=== PATIENT | female | born 1980 | race Caucasian/White ===

== ENCOUNTER → 2021-05-06 03:14 | Outpatient (CLI) | payer OTHER, SELFPAY ==
[2021-05-06 19:06] LABS: SARS-CoV-2 RNA PCR Positive
== END ==
PROVIDERS: Visit Provider Obstetrics & Gynecology
DX: U07.1 COVID-19 (principal)
CPT/HCPCS: C9803; U0003; U0005

== ENCOUNTER 2021-05-06 08:31 | Outpatient (CLI) | payer OTHER, SELFPAY ==
[2021-05-06 09:16] LABS: Basophils Percent Auto 0.5 % (0.2-1.2); Eosinophils Absolute Auto 0.2 K/mm3 (0-0.3); Eosinophils Percent Auto 2.8 % (0-4.4); Hematocrit 42.8 % (37.0-47.0); Hemoglobin 14.6 g/dL (12.0-15.0); Immature Granulocyte Absolute 0.04 K/mm3 (0.00-0.031); Immature Granulocyte Percent A 0.5 % (0-0.5); Lymphocytes Absolute Auto 1.59 K/mm3 (0.9-3.2); Mean Corpuscular HGB Conc 34.1 g/dl (32-36); Mean Corpuscular Hemoglobin 31.5 pg (26-34); Mean Corpuscular Volume 92.2 fl (80-100); Mean Platelet Volume 10.1 fl (7.4-10.4); Monocytes Absolute Auto 0.5 K/mm3 (0.1-0.6); Monocytes Percent Auto 6.7 % (2.6-8.5); Neutrophils Absolute Auto 5.2 K/mm3 (1.3-6.7); Neutrophils Percent Auto 68.5 % (45.5-73.1); Platelet Count Result 227 k/mm3 (150-375); Red Blood Count 4.64 M/mm3 (4.2-5.4); Red Cell Distribution Width 11.7 % (11.5-14.5); White Blood Count 7.6 K/mm3 (4.5-10.0)
== END 2021-05-06 08:32 | disposition home or self-care (01) ==
LOC: ANHSURGERY 08:36
PROVIDERS: Visit Provider Obstetrics & Gynecology
DX: D21.9 Benign neoplasm of connective and other soft tissue, unspecified (principal); Z01.818 Encounter for other preprocedural examination
CPT/HCPCS: 36415; 85025; 86850; 86900; 86901; C9803; U0003; U0005

== ENCOUNTER 2021-05-30 00:17 | Day surgery (SDC) | payer OTHER, SELFPAY ==
[2021-05-02 13:43] VITALS: BMI 20.5
--- NOTE | 2021-05-02 13:55 | PC.NURSE ---
Addendum entered by Gifty Bazzi RN 05/22/21 10:27: PT TO ARRIVE AT 0600 ON 05/30/21 FOR SURGERY AT 0730. ONE VISITOR IS ALLOWED AT THIS TIME. NO REPEAT COVID TEST NEEDED. Original Note: Report to the Outpatient Waiting Room, entrance under the green pavilion located off [facility], at time 6:00 on date 05/09/21. OR Time: 7:30. - You will be asked a series of questions to screen for COVID 19 for your protection. - A mask is required within the hospital. - No visitors are allowed at this time. Preoperative COVID Testing Requirements: COVID TEST 05/06 AT 8:30 No COVID Test needed if: (proof is required; if not received patient will have Rapid Test prior to entry) - Patient has received COVID Vaccine at least 14 days prior to procedure date or - Patient has positive COVID test result within last 90 days of surgery date. COVID Test needed if above criteria is not met If not COVID vaccinated a COVID test must be conducted within 72 hours of surgery and patient is asked to isolate self from time of testing until procedure. You will go to the [email or web address] for your COVID testing. The [email or web address] site is located at the corner of [address] [facility]. You will only be called if COVID results are positive and your surgeon may reschedule your elective surgery date. Patients may have clear liquids (water, carbonated beverages, clear teas, apple juice) until 3 hours prior to surgery (4:30) with a maximum of 20 ounces. - No food from midnight until time of surgery Take the following medications with a SIP of water the morning of surgery: XANAX AND PAIN PILL (IF NEEDED) Medications to discontinue per physician: VITAMINS/SUPPLEMENTS Date to take last dose: 05/05/21 Please no make-up, nail english, hairspray, perfume, deodorant, or body powder the day of surgery. No jewelry (including any body piercings) or valuables the day of surgery, leave them at home. Please take a shower or bath the night before, or the morning of, surgery with an antibacterial soap. Wear comfortable, loose fitting clothing. - Jewelry must be removed prior to entering the operating room. Rings and piercings that are not removed may be cut off. - The hospital will not accept responsibility for valuables. - Please leave all valuables, including medications, at home the day of surgery. If you are going home after surgery, a licensed class c driver must drive you home. - NO public transportation without another adult. - We recommend that an adult stay with you for 24 hours following discharge. - We also recommend that you do not drive, make important decision, drink alcoholic beverages, or take any drugs that were not prescribed by your health care provider for at least 24 hours after your discharge time. Follow any additional instructions given to you from your surgeon. Telephone instructions given to AMY MIKE and asked if any additional questions and then verbalized understanding. Patient advised to call surgeon office or pre surgery nurse liaison [phone] if any additional questions.
--- NOTE | 2021-05-22 10:27 | PC.NURSE ---
Pt states no changes in medications or health history since initial interview. Covid + results added to history. New instructions reviewed with pt. Pt denies further questions at this time.
--- NOTE | 2021-05-28 07:52 | P.HP_ITS ---
H&P: HPI History of Present Illness Date/Time: 05/28/21 07:52 41-year-old para admitted for robotic total vaginal hysterectomy bilateral salpingectomy secondary to dyspareunia/dysmenorrhea/fibroids. Patient was scheduled a month ago and had COVID this was rescheduled. She has known fibroids and severe pain discomfort and failed an ablation. Risks and benefits reviewed including but not exclusive of , aspiration pneumonia, bleeding, transfusion perforation injury to bowel, bladder, ureters, or other internal organs with need for laparotomy. She received the [employer] handout entitled hysterectomy as well as the de Bernard handout. She had all questions answered and asked to proceed Chief Complaint: Pelvic pain and dyspareunia with enlarged uterus Review of Systems Review of Systems: All systems reviewed & are unremarkable except as noted in HPI and below [facility] Social History Social History Smoking packs per day: 1 Smoking cigarettes per day: 20.0 Years smoked: 6 Smoking pack-years: 6.00 Smoking status: Former smoker Tobacco type: cigarettes Smoking end date: 04/05/04 Alcohol intake: never Substance use: current Substance use type: marijuana Living arrangements: with family Spiritual care concerns: No Meds Home Medications and Allergies Home Medications Medication Instructions Recorded Confirmed Type acetaminophen 300 mg-codeine 60 mg 1 tablet PO TID #90 tablet 11/06/20 05/22/21 Rx tablet sumatriptan succinate 100 mg tablet See Rx Instructions .ROUTE 03/25/21 05/22/21 Rx .COMPLEX #9 tablet alprazolam [Xanax] 0.5 mg PO DAILY 05/02/21 05/22/21 History ascorbic acid-vitamin E-biotin 1 tablet PO DAILY 05/02/21 05/22/21 History [Hair, Skin, Nails with Biotin] Allergies Allergy/AdvReac Type Severity Reaction Status Date / Time METOCLOPRAMIDE HCL Allergy Mild Hyperactive Uncoded 05/22/21 10:26 Exam Const: General: no acute distress Eyes: General: appearance normal, both eyes and all related structures Neck: Neck: supple and no JVD Thyroid: thyroid normal Resp: Effort & Inspection: normal respiratory effort Auscultation: clear to auscultation bilaterally Cardio: Rate: regular rate Rhythm: regular rhythm GI: Inspection: non-distended GI Palp: Yes Soft to palpation, No Tenderness to palpation present (GI) and No Guarding due to palpation present (GI) Auscultation: normal bowel sounds : External Female Exam: normal external appearance Speculum Exam - Vagina: normal appearance of the vagina Speculum Exam - Cervix: normal appearance of the cervix Bimanual exam- vagina & uterus: Cervical tenderness present, enlarged and nodular Skin: General skin exam: no rashes or lesions noted Extrem: General: normal to inspection and no edema Psych: Mental Status: mental status grossly normal Affect: normal affect Assessment and Plan Additional Plan Impression: Enlarged uterus pain and dyspareunia with suspected fibroids Plan: Robotic total vaginal hysterectomy/bilateral salpingectomies
[2021-05-30] VITALS (15 sets, daily range): BP systolic 104–117; BP diastolic 62–82; PULSE 58–108; RESP 12–18; TEMP 36.6–37.3; O2SAT 92–100
--- NOTE | 2021-05-30 06:39 | WPDHPUPDATE1 ---
History and Physical Update Update Date/Time: 05/30/21 06:39 History and Physical has been reviewed, including an updated exam of the patient. There are NO changes in the patient's condition. Risks, benefits, and alternatives have been discussed and questions answered. Patient agrees to proceed with procedure.
--- NOTE | 2021-05-30 06:41 | P.PNAN_ITS ---
Anes - Initial Pre Proc Eval Procedure: Operation Date: 05/30/21 07:30 Proposed Procedures p Robotic Assisted Total Vaginal Hysterectomy with Bilateral Salpingectomy - Adolph Hinson MD Date/Time: 05/30/21 06:41 Surgeon: Adolph Hinson MD Pre Op Diagnosis: pain, dyspareunia, dysmenorrhea, fibroids Patient Data Age: 41 Gender: F Height: 1.63 m Weight: 53.5 kg Allergies Allergy/AdvReac Type Severity Reaction Status Date / Time metoclopramide [From Reglan] AdvReac Intermediate Hyperactive Verified 05/30/21 06:17 Home Medications Medication Instructions Recorded Confirmed Type acetaminophen 300 mg-codeine 60 mg 1 tablet PO TID #90 tablet 11/06/20 05/22/21 Rx tablet sumatriptan succinate 100 mg tablet See Rx Instructions .ROUTE 03/25/21 05/22/21 Rx .COMPLEX #9 tablet alprazolam [Xanax] 0.5 mg PO DAILY 05/02/21 05/22/21 History ascorbic acid-vitamin E-biotin 1 tablet PO DAILY 05/02/21 05/22/21 History [Hair, Skin, Nails with Biotin] hydrocodone-acetaminophen 1 tablet PO Q4H PRN #30 tablet 05/30/21 Rx Patient hx anesthesia problems: none Family hx anesthesia problems: none Results Review: All pre-operative results and documents have been reviewed as part of the pre-operative evaluation. COUNTS INCLUDE 234 BEDS AT THE [facility] Past Medical History Medical History (Updated 05/30/21 @ 06:42 by Adolph Menchaca MD) Abnormal uterine bleeding Anxiety Surgical History Surgical History (Updated 05/30/21 @ 06:42 by Adolph Menchaca MD) H/O laparoscopy History of section History of endometrial ablation Social History Social History Smoking packs per day: 1 Smoking cigarettes per day: 20.0 Years smoked: 6 Smoking pack-years: 6.00 Smoking status: Former smoker Tobacco type: cigarettes Smoking end date: 04/05/04 Alcohol intake: never Substance use: current Substance use type: marijuana Living arrangements: with family Spiritual care concerns: No Anes - Eval Final PreProcedure Day of Procedure 05/30/21 06:41 Patient weight: normal Heart: regular rate and rhythm Lungs: clear to auscultation Airway: Mallampati scale class II Neurological: alert and oriented Last oral intake: >/= 8 hours ASA classification: II Emergent: no Anesthetic plan: proceed Anesthesia type and monitoring: general ETT and standard monitoring Results Review: All pre-operative results and documents have been reviewed as part of the pre-operative evaluation. Informed Consent: The patient's anesthetic plan and its attendant risks and benefits were discussed with the patient/family/POA. Questions were solicited and answers provided to the satisfaction of the patient/family/POA.
[2021-05-30] MEDS: LACTATED RINGERS 1,000 ML 30 ML IV CONT ×2 (06:45→08:55)
[2021-05-30] MEDS: KETOROLAC 15 MG/ML VIAL (*BKC) IV PUSH (06:46)
[2021-05-30] MEDS: ceFAZolin 2 GM/D5W 50 ML 2 GM/50 ML BAG IVPB (07:26)
--- NOTE | 2021-05-30 08:44 | W.PM.PROC2 ---
Procedure Note - Detailed Date of Procedure 05/30/21 Pre-op Diagnosis pain, dyspareunia, dysmenorrhea, fibroids Post-op Diagnosis same Procedure Performed Robotic total vaginal hysterectomy with bilateral salpingectomies/destruction of endometriosis Surgeon Adolph Hinson MD Anesthesia general Indications 41-year-old female with pelvic pain dyspareunia dysmenorrhea and suspected fibroids. Findings Fibroid uterus. Adhesions from the omentum to the anterior abdominal wall. Endometriosis along the left uterosacral ligament. Normal-appearing ovaries. Tubes status post tubal ligation Description of Procedure The patient was prepped draped in normal sterile fashion placed in dorsal lithotomy position. Under excellent general trach anesthesia weighted speculum placed in posterior fornix vagina. Anterior lip of the cervix grasped with single-tooth tenaculum and the uterus sounded to 7cm. Serial dilatation with fragmented dilators performed followed by passes the 6. ARNAUD and the 3. Cold cup. Next a 16 [place] catheter was placed in the bladder draining clear urine. The weighted speculum in and gloves removed. A supraumbilical incision made the Veress needle passed in the abdomen. Abdomen filled with CO2 gas [id number]. The 8mm trocar advanced in the abdomen downside visualized no injury seen P. Patient placed in Trendelenburg and left and right lateral quadrant incisions made. The 8mm trocars advanced under direct visualization and the 8mm trocar advanced in the right upper quadrant under direct visualization assuring no injury. The robot was docked. Attention was turned to the probation counselor. The left round ligament grasped, burned, cut. Anteriorly a bladder flap was formed by sharply dissecting the bladder layer and peritoneum layer by layer until it was released and was able to be pushed caudally to the opposite round ligament was clamped, burned, cut. The omentum anteriorly was the stopping visualization so sharp dissection was undertaken with the monopolar cautery. The left portion of over fallopian tube was grasped and was dissected off the ovary and uterus. This was passed through the right upper quadrant incision. In like fashion the low right tube was dissected off the uterus and ovary and passed through the right upper quadrant incision. The left utero-ovarian ligament was clamped, burned, cut and brought to the level previously cut round ligament conserving the left ovary the right ovary was conserved by clamping burning cutting the utero-ovarian ligaments and brought to the level of the previously cut round ligament. The cardinal and broad ligaments on the left were serially skeletonized clamping burning and cutting and bring this down lateral edge of the uterus until the large tortuous blood vessels could be seen on the left these were individually clamped, burned, cut. In like fashion the cardinal broad ligaments on the right were serially skeletonized clamped, burned, cut and brought down the lateral edge of the uterus until the large tortuous vessels on the right could be seen these were then individually clamped, burned, cut. Blanching of the uterus was noted a colpotomy incision was made cervix uterus brought through the vagina. As noted the tubes and already been brought through the right upper quadrant. Hemostasis was assured blood loss was estimated [id number]. The vagina was closed with continuous running 0V lock from lateral edge to lateral edge back to the midline. Irrigation undertaken to clear in all pedicles appeared dry 2 small areas of endometriosis were seen along the left uterosacral ligament and these were burned with the monopolar cautery. The irrigation was undertaken to clear the robot was undocked. The gas removed from the abdomen and the incisions closed with 4 Monocryl glue. The patient was awakened and went to recovery in satisfactory condition. All sponge, needle, instrument counts were correct. There
[2021-05-30] MEDS: fentaNYL CITRATE INJ (*CRX) 100 MCG/2 ML VIAL 25 MCG IV PUSH ×4 (09:18→09:52)
--- NOTE | 2021-05-30 10:27 | ADMGEN ---
1027-This patient, Liz Dumas, was admitted to OB 2nd Floor Room 289-00. Patient/family oriented to hospital policies and general routines including ID bracelet, bed and alarms, visiting hours, pain management, procedures, bathroom and other care routines, personal items, smoking policy, room service/diet, and visiting hours. Information on how to activate the Rapid Response Team has been discussed. Patient/Family are encouraged to report perceived risks to care and to ask questions if they do not understand what they are told or what they should do.
[2021-05-30] MEDS: KETOROLAC 30 MG/ML VIAL (*BKC) IV PUSH (10:46)
[2021-05-30] MEDS: DEXTROSE 5%/LACTATED RINGERS 1,000 ML 125 ML IV CONT ×2 (10:47→18:46)
[2021-05-30] MEDS: HYDROcodone/acetaminophen (*CRX) 10-325 MG TABLET 1 TAB PO (13:09)
[2021-05-30] MEDS: SIMETHICONE 80 MG TAB.CHEW PO (13:13)
[2021-05-30] MEDS: ONDANSETRON INJ 4 MG/2 ML VIAL IV PUSH (16:47)
[2021-05-30] MEDS: PROMETHAZINE HCL 25 MG/ML AMPUL 12.5 MG IV PUSH (19:32)
[2021-05-30] MEDS: IBUPROFEN 600 MG TABLET PO (23:04)
[2021-05-31 03:50] VITALS: BP 99/62; PULSE 65; RESP 16; TEMP 36.8; O2SAT 100
[2021-05-31 05:01] LABS: Basophils Percent Auto 0.3 % (0.2-1.2); Eosinophils Absolute Auto 0.2 K/mm3 (0-0.3); Eosinophils Percent Auto 1.2 % (0-4.4); Hematocrit 34.4 % (37.0-47.0); Hemoglobin 11.6 g/dL (12.0-15.0); Immature Granulocyte Absolute 0.06 K/mm3 (0.00-0.031); Immature Granulocyte Percent A 0.4 % (0-0.5); Lymphocytes Absolute Auto 1.42 K/mm3 (0.9-3.2); Lymphocytes Percent Auto 10.4 % (18.3-44.2); Mean Corpuscular HGB Conc 33.7 g/dl (32-36); Mean Corpuscular Volume 94.8 fl (80-100); Mean Platelet Volume 10.2 fl (7.4-10.4); Monocytes Absolute Auto 0.9 K/mm3 (0.1-0.6); Monocytes Percent Auto 6.9 % (2.6-8.5); Neutrophils Absolute Auto 11.1 K/mm3 (1.3-6.7); Neutrophils Percent Auto 80.8 % (45.5-73.1); Platelet Count Result 195 k/mm3 (150-375); Red Blood Count 3.63 M/mm3 (4.2-5.4); Red Cell Distribution Width 12.1 % (11.5-14.5); White Blood Count 13.7 K/mm3 (4.5-10.0)
[2021-05-31] MEDS: IBUPROFEN 600 MG TABLET PO ×2 (05:19→12:00)
--- NOTE | 2021-05-31 07:00 | PC.NURSE ---
PT introductions made and plan of care discussed per post op student records coordinator surgery, pain management, daily care activities and pending discharge to home. PT received such instructions per one to one discussion and demonstration. PT sole recipient of such instructions and no barriers to learning identified. PT verbalized understanding of such care
--- NOTE | 2021-05-31 07:02 | PM.DS ---
DS: Admitting Diagnosis Discharge Date 05/31/19 Admitting Diagnosis Pelvic pain/dyspareunia/uterine fibroids DS: Summary Hospital Course Hospital Course: The patient was admitted for robotic total vaginal hysterectomy bilateral salpingectomy. The procedure was unremarkable. Please see the operative report for full details. Her hospital course unremarkable. She remained afebrile. She was up, voiding without difficulty, ambulating, generally without complaints. Time Spent with Patient Time attestation: Total time spent providing and/or coordinating discharge services: Exam Const: General: no acute distress Eyes: General: appearance normal, both eyes and all related structures Neck: Neck: supple and no JVD Thyroid: thyroid normal Resp: Effort & Inspection: normal respiratory effort Auscultation: clear to auscultation bilaterally Cardio: Rate: regular rate Rhythm: regular rhythm GI: Inspection: non-distended GI Palp: Yes Soft to palpation, No Tenderness to palpation present (GI) and No Guarding due to palpation present (GI) Auscultation: normal bowel sounds : General: Yes bladder normal to palpation External Female Exam: normal external appearance Speculum Exam - Vagina: normal vaginal discharge and No vaginal bleeding Speculum Exam - Cervix: nontender Bimanual exam- vagina & uterus: bladder normal to palpation and No Cervical tenderness present OB/external & speculum: No vaginal bleeding Skin: General skin exam: no rashes or lesions noted Extrem: General: normal to inspection and no edema Psych: Mental Status: mental status grossly normal Affect: normal affect DS: Data Data Completed and Pending Pending studies at discharge: Pending at discharge 05/30/21 08:14 Surgical [PTH] Routine Labs on day of discharge: Labs from last 24 hours 05/31/21 05/30/21 03:45 06:35 WBC 13.7 H RBC 3.63 L Hgb 11.6 L D Hct 34.4 L MCV 94.8 MCH 32.0 MCHC 33.7 RDW 12.1 Plt Count 195 MPV 10.2 Immature Gran % (Auto) 0.4 Neut % (Auto) 80.8 H Lymph % (Auto) 10.4 L [place] % (Auto) 6.9 Eos % (Auto) 1.2 Baso % (Auto) 0.3 Lymph # (Auto) 1.42 [place] # (Auto) 0.9 H Eos # (Auto) 0.2 Baso # (Auto) 0.0 Abs Immat Gran (auto) 0.06 H Absolute Neuts (auto) 11.1 H Absolute Nucleated RBC 0.0 Nucleated RBC % 0.0 Blood Type A Positive Antibody Screen Negative Discharge Plan Discharge Patient Disposition: Home, Self-Care Stand Alone Forms: General Discharge Instructions Follow-up/Referrals: Adolph Hinson MD [Physician] - Discharge Medications: New hydrocodone-acetaminophen 5-325 mg tablet 1 tablet PO Q4H PRN (Reason: pain) Qty: 30 RF: 0 No Action alprazolam [Xanax] 0.5 mg Tablet 0.5 mg PO DAILY RF: 0 Hair, Skin, Nails with Biotin 7.5-7.5-1,250 mg-unit-mcg Tablet,Chewable 1 tablet PO DAILY RF: 0 acetaminophen-codeine 300-60 mg tablet 1 tablet PO TID Qty: 90 RF: 0 sumatriptan succinate 100 mg tablet See Rx Instructions .ROUTE .COMPLEX Qty: 9 RF: 5
--- NOTE | 2021-05-31 07:04 | PM.GYNPNOP ---
TRANSPORTATION MANAGER - A/P Postoperative Procedures: Procedures Operation Date: 05/30/21 07:30 Actual Procedure Side Surgeon p Robotic Assisted Total Vaginal Hysterectomy with Bilateral Salpingectomy, Destruction of Endometriosis Adolph Hinson MD Postoperative day: 1 Postoperative status: doing well Postoperative plan: routine post-op care, advance diet and discharge Time Spent With Patient Time: Total time spent is greater than 50% in coordination of care (as documented) at patient's floor/unit and/or counseling patient: Time with patient: less than 15 minutes TRANSPORTATION MANAGER- PN:Subj Post-Op Subjective Date/time seen: 05/31/21 07:04 Subjective: patient has no complaints, patient desires discharge and pain is well controlled Review of Systems Review of Systems: All systems reviewed & are unremarkable except as noted in HPI and below Exam Const: General: no acute distress Eyes: General: appearance normal, both eyes and all related structures Neck: Neck: supple and no JVD Thyroid: thyroid normal Resp: Effort & Inspection: normal respiratory effort Auscultation: clear to auscultation bilaterally Cardio: Rate: regular rate Rhythm: regular rhythm GI: Inspection: non-distended GI Palp: Yes Soft to palpation, No Tenderness to palpation present (GI) and No Guarding due to palpation present (GI) Auscultation: normal bowel sounds : General: Yes bladder normal to palpation External Female Exam: normal external appearance Speculum Exam - Vagina: normal vaginal discharge and No vaginal bleeding Speculum Exam - Cervix: nontender Bimanual exam- vagina & uterus: bladder normal to palpation and No Cervical tenderness present OB/external & speculum: No vaginal bleeding Skin: General skin exam: no rashes or lesions noted Extrem: General: normal to inspection and no edema Psych: Mental Status: mental status grossly normal Affect: normal affect TRANSPORTATION MANAGER - PN: Obj Data Vital Signs Vital Signs: Vital Signs - 24 hr 05/30/21 09:00 05/30/21 09:15 05/30/21 09:30 Temperature 97.9 F Pulse Rate 108 H 64 70 Respiratory Rate 12 18 16 Blood Pressure 117/82 115/68 112/70 Pulse Oximetry 100 98 95 05/30/21 09:46 05/30/21 10:00 05/30/21 10:15 Temperature Pulse Rate 63 67 70 Respiratory Rate 16 16 18 Blood Pressure 108/65 104/71 108/62 Pulse Oximetry 93 92 93 05/30/21 10:27 05/30/21 11:00 05/30/21 12:16 Temperature 98.8 F 98.7 F Pulse Rate 58 L 58 L 86 Respiratory Rate 16 16 16 Blood Pressure 114/78 112/71 Pulse Oximetry 98 98 97 05/30/21 15:17 05/30/21 17:03 05/30/21 20:20 Temperature 98.3 F 99.2 F Pulse Rate 86 67 91 Respiratory Rate 16 18 18 Blood Pressure 106/69 116/75 Pulse Oximetry 97 97 99 05/30/21 23:16 05/30/21 23:20 05/31/21 03:50 Temperature 99.2 F 98.2 F Pulse Rate 69 68 65 Respiratory Rate 16 16 16 Blood Pressure 107/65 99/62 L Pulse Oximetry 99 100 100 Intake/Output Intake/Output: Intake & Output 05/28/21 05/29/21 05/30/21 05/31/21 23:59 23:59 23:59 23:59 Intake Total 3070 300 Output Total 350 1800 Balance 2720 -1500 Meds/Results Medications: Active Medications Generic Name Dose Route Start Last Admin Trade Name Freq PRN Reason Stop Dose Admin Hydrocodone Bitart/Acetaminophen 1 tab 05/30/21 10:17 Hydrocodone/Acetaminophen (*Crx) 5-325 Mg Tablet PO Q3H PRN Pain Rated 5 or Less Hydrocodone Bitart/Acetaminophen 1 tab 05/30/21 10:17 05/30/21 13:09 Hydrocodone/Acetaminophen (*Crx) 10-325 Mg Tablet PO 1 tab Q3H PRN Administration Pain Rated 6 or Greater Docusate Sodium 100 mg 05/30/21 09:00 05/30/21 16:47 Docusate Sodium 100 Mg Capsule PO Not Given BID RODRIGO Enoxaparin Sodium 40 mg 05/30/21 09:00 05/30/21 10:29 Enoxaparin 40 Mg/0.4 Ml Syringe SUB-Q Not Given DAILY RODRIGO Dextrose/Lactated Ringer's 1,000 mls @ 125 mls/hr 05/30/21 10:17 05/30/21 18:46 Dextrose 5%/Lactated Ringers IV CONT 125 mls/hr .Q8H RODRIGO Ad
[2021-05-31 08:30] VITALS: BP 104/63; PULSE 88; RESP 18; TEMP 36.6; O2SAT 98
[2021-05-31] MEDS: SIMETHICONE 80 MG TAB.CHEW PO (08:36)
[2021-05-31] MEDS: DOCUSATE SODIUM 100 MG CAPSULE PO (08:36)
[2021-05-31] MEDS: ENOXAPARIN 40 MG/0.4 ML SYRINGE SUB-Q (08:36)
[2021-05-31] MEDS: ALPRAZolam (*CRX) 0.5 MG TABLET PO (09:51)
[2021-05-31] MEDS: HYDROcodone/acetaminophen (*CRX) 10-325 MG TABLET 1 TAB PO (10:06)
--- NOTE | 2021-05-31 12:00 | PC.NURSE ---
PT received discharge instructions per protocol and verbalized understanding of such care.
--- NOTE | 2021-05-31 12:15 | PC.NURSE ---
Pt discharged to home via wheelchair accompanied by significant other and taken to waiting car. Follow up appt confirmed for [address] Olivia Alvarado.
== END 2021-05-31 12:15 | disposition home or self-care (01) ==
LOC: ANHSURGERY 06:40 → ANHOB2 10:21
PROVIDERS: Visit Provider Obstetrics & Gynecology
PROC: (CPT 58662; principal; 2021-05-30 07:30)
DX: N80.3 Endometriosis of pelvic peritoneum (principal); N80.0 Endometriosis of uterus; R10.2 Pelvic and perineal pain; N94.10 Unspecified dyspareunia; N94.6 Dysmenorrhea, unspecified; N73.6 Female pelvic peritoneal adhesions (postinfective); N83.8 Other noninflammatory disorders of ovary, fallopian tube and broad ligament; F41.9 Anxiety disorder, unspecified; Z87.891 Personal history of nicotine dependence; F12.90 Cannabis use, unspecified, uncomplicated
CPT/HCPCS: 58662; 58552; S2900; 36415; 85025; 86850; 86900; 86901; 88307; 99199; A9270; J0330; J0690; J1100; J1650; J1885; J2250; J2270; J2405; J2550; J2710; J3010; J7030; J7120; J7121

== ENCOUNTER 2022-08-12 13:53 | Outpatient (CLI) | payer OTHER, SELFPAY ==
--- NOTE | ~2022-08-12 | XR_ITS ---
EXAM: XR lumbar spine 2-3V DATE: 08/12/2022 14:45 HISTORY: LOWER BACK INJURY . COMPARISON: None available. FINDINGS: 5 nonrib-bearing lumbar-type vertebral bodies. Pedicles intact. Normal vertebral body alig nment. Vertebral body heights preserved. Incidental note of mild anterior wedge deformity at T11, lik neeta physiologic, unless accompanied by acute pain/tenderness. Disc spaces maintained. Normal facets a nd posterior elements. No fracture or dislocation. IMPRESSION: No acute fracture or traumatic malalignment detected in the lumbar spine. Presumed physio logic mild anterior wedge deformity at T11. Reviewed, dictated and finalized at location K. IMPRESSION: No acute fracture or traumatic malalignment detected in the lumbar spine. Presumed physiologic mild anterior wedge deformity at T11.
== END 2022-08-12 13:54 | disposition home or self-care (01) ==
PROVIDERS: PCP Internal Medicine Gastroenterology; Visit Provider Obstetrics & Gynecology
DX: S39.92XA Unspecified injury of lower back, initial encounter (principal); X58.XXXA Exposure to other specified factors, initial encounter
CPT/HCPCS: 72100

== ENCOUNTER 2024-01-12 15:21 | Outpatient (CLI) | payer OTHER, SELFPAY ==
--- NOTE | ~2024-01-12 | MR_ITS ---
EXAMINATION: MR brain/brain stem wo con DATE: 01/12/2024 15:53 INDICATION: Personal history of other healed physical injury. Migraine headache. TECHNIQUE: Magnetic resonance imaging (MRI) of the brain and brainstem was performed without intraven ous contrast. COMPARISON: Brain MRI 08/31/2006, head CT 04/02/2008 FINDINGS: There is no intracranial hemorrhage, acute infarction, or abnormal intracranial mass lesion . There is a small focus of increased T2-weighted signal intensity in the left frontal lobe deep whit e matter, which is normal as an isolated finding. The ventricles are normal in size. The paranasal si nuses are clear. The orbits are normal. The mastoid air cells are normal. IMPRESSION: 1. Normal brain. Reviewed, dictated and finalized at location A. IMPRESSION: 1. Normal brain.
== END 2024-01-12 15:22 | disposition home or self-care (01) ==
PROVIDERS: PCP Internal Medicine Gastroenterology; Visit Provider Psychiatry & Neurology Neurology
DX: Z87.828 Personal history of other (healed) physical injury and trauma (principal)
CPT/HCPCS: 70551